=== PATIENT | female | born 1990 | race Two or more races ===

== ENCOUNTER 2017-02-12 00:06 | Emergency (ER) | payer OTHER ==
[~2017-02-12] VITALS: Ht 162.6 cm; Wt 90.7 kg
[2017-02-12 00:13] VITALS: BP 135/87
== END 2017-02-12 03:05 | disposition left against medical advice (07) ==
LOC: EDBD 00:06 → ER 00:06
DX: S61.412A Laceration without foreign body of left hand, initial encounter (principal); Z53.21 Procedure and treatment not carried out due to patient leaving prior to being seen by health care provider; X58.XXXA Exposure to other specified factors, initial encounter; Y93.89 Activity, other specified; Y99.8 Other external cause status; Y92.89 Other specified places as the place of occurrence of the external cause

== ENCOUNTER 2022-03-13 04:50 | Emergency (ER) | payer OTHER ==
[~2022-03-13] VITALS: Ht 162.6 cm; Wt 99.8 kg
[2022-03-13 04:51] VITALS: BP 132/80
[2022-03-13 05:49] LABS: Urine Bacteria NONE SEEN /hpf (None Seen); Urine Blood Negative /uL (Negative); Urine Mucus FEW (None Seen); Urine Specific Gravity 1.026 (1.001-1.035); Urine WBC 1 /hpf (0 - 5)
[2022-03-13 07:00] LABS: Albumin 3.9 g/dL (3.4-5.0); Calcium 9.8 mg/dL (8.5-10.1); Potassium 4.1 mmol/L (3.5-5.1)
[2022-03-13 07:03] LABS: BUN/Creatinine Ratio 15.3
[2022-03-13 07:05] LABS: Bilirubin, Total 0.3 mg/dL (0.2-1.0); Total Protein 7.5 g/dL (6.4-8.2)
== END 2022-03-13 07:07 | disposition left against medical advice (07) ==
LOC: ER 04:50
DX: R10.31 Right lower quadrant pain (principal); R11.0 Nausea; Z53.21 Procedure and treatment not carried out due to patient leaving prior to being seen by health care provider
CPT/HCPCS: 36415; 80053; 81001; 83690; 84702